=== PATIENT | male | born 1945 | race Caucasian/White ===

== ENCOUNTER 2017-09-19 22:29 | Observation (INO) ==
--- NOTE | 2017-09-19 23:43 | Emergency Department Note ---
Disposition Clinical Impression: Left leg pain, Unable to ambulate Disposition: Admitted As Inpatient Condition: Good Time of Disposition: 01:03 Extremity Problem HPI - General Chief complaint: ED Extremity Problem,Nontraumatic Stated complaint: Left knee pain Time Seen by Provider: 09/19/17 22:31 Source: patient Limitations: no limitations, altered mental status Nursing Notes Reviewed: Yes Vital Signs Reviewed: Yes - History of Present Illness HPI Narrative: 72-year-old male presents to the ER due to left knee pain. Reports it is issue this been going on for months. States he was supposed to have a procedure on his leg with a vascular surgeon that he cannot stay appointment. States he was drinking today and his leg gave out on him. States it happened several times. Reports pain in his left calf. Denies prior history of DVT. No numbness tingling or paresthesias. No other complaints. Pt Subjective Complaint: extremity pain Onset (ago): day(s) Consistency: intermittent Injury Location: left, lower extremity Pain Scale: 10 Improves with: nothing Worsens with: nothing Review of Systems: As Per HPI Past Medical History - Past Medical History Attestation: Yes The following information was validated with the patient. Source: patient Medical history: Reports: hyperlipidemia, hypertension Psychiatric history: Reports: anxiety, depression - Social History Smoking Status: Current every day smoker Smokeless Tobacco Status: No Alcohol use: Reports: heavy, recent Drug use: Reports: none Physical Exam - General Limitations: no limitations General appearance: appears intoxicated - Extremities Exam Extremities exam: Present: normal inspection, full ROM - Expanded Upper Extremity Exam Shoulder exam: Present: normal inspection, full ROM Arm exam: Present: normal inspection, full ROM Elbow exam: Present: normal inspection, full ROM Forearm/Wrist exam: Present: normal inspection, full ROM Hand exam: Present: normal inspection, full ROM - Expanded Lower Extremity Exam Hip/Pelvis exam: Present: normal inspection, full ROM Upper leg exam: Present: normal inspection, full ROM Knee exam: Present: normal inspection, full ROM Lower leg exam: Present: normal inspection, full ROM, other (Tenderness in the left calf. No discrepancy in leg swelling.) Ankle exam: Present: normal inspection, full ROM Foot/toe exam: Present: normal inspection, full ROM - Skin Skin exam: Present: warm, dry Course Course Narrative: Patient seen and examined. Neurovascularly intact. No indication for imaging. No evidence of DVT on exam. - Reevaluation(s) Reevaluation #1: Patient unable to ambulate here despite pain medication, walker. Plan for admission for social service consult with potential residential placement. Vital Signs Temperature 98.7 F 09/19/17 22:44 Pulse Rate 78 09/19/17 22:44 Respiratory Rate 16 09/19/17 22:44 Blood Pressure 134/81 09/19/17 22:44 O2 Sat by Pulse Oximetry 96 09/19/17 22:44 Temperature 98.7 F 09/19/17 22:44 Pulse Rate 78 09/19/17 22:44 Respiratory Rate 16 09/19/17 22:44 Blood Pressure 134/81 09/19/17 22:44 O2 Sat by Pulse Oximetry 96 09/19/17 22:44 Oxygen Delivery Oxygen Delivery Room Air Extremity Problem, Nontraumati - MDM Narrative Medical decision making narrative: 72-year-old male with left lower extremity pain. Likely claudication as he was supposed to see a vascular surgeon but canceled his surgery. Worsening pain unable to ambulate here despite medication and walker. Duplex imaging ordered for DVT evaluation however the patient is a poor candidate for anticoagulation at this time as he has frequent falls. Admitted to the hospitalist service for unable to ambulate and for further social service needs. - Lab Data Result diagrams: 09/20/17 02:30 09/20/17 02:30 Lab Results 09/20/17 09/20/17 09/20/17 Range/Units 02:30 02:30 02:30 WBC 13.9 H (4.3-11.1) K/mcL RBC 4.52 (4.19-5.50) M/mcL Hgb 15.2 (12.9-16.9) g/dL Hct 44.3 (37.5-50.1) % MCV 98.0 (83.0-100.0) fL MCH 33.6 H (28.0-33.3) pg MCHC 34.3 (31.6-35.5) g/dL RDW 13.2 (11.5-14.5) % Plt Count 211 (140-400) K/mcL MPV 10.1 (9.4-12.4) fL Immature Gran % 0.4 (0-4) % Seg Neutrophils % 67.5 % Lymphocytes % 26.0 % Monocytes % 4.5 % Eosinophils % 1.1 % Basophils % 0.5 % Neutrophils # 9.4 H (1.6-8.9) K/mcL Lymphocytes # 3.6 (0.6-4.6) K/mcL Monocytes # 0.6 (0.0-1.3) K/mcL Eosinophils # 0.2 (0.0-0.6) K/mcL Basophils # 0.1 (0.0-0.2) K/mcL Sodium 142 (136-145) mEq/L Potassium 3.7 (3.5-5.1) mEq/L Chloride 109 H (98-107) mEq/L Carbon Dioxide 23 (23-29) mEq/L BUN 16 (8-23) mg/dL Creatinine 0.71 (0.70-1.30) mg/dL Est GFR ( Amer) > 60 (> 60) Est GFR (Non-Af Amer) > 60 (> 60) BUN/Creatinine Ratio 23 (6-26) Glucose 154 H (70-105) mg/dL Calculated Osmolality 298 (280-300) Calcium 9.1 (8.6-10.3) mg/dL Total Bilirubin 0.3 (0.3-1.0) mg/dL AST 39 (13-39) Units/L ALT 44 (7-52) Units/L Alkaline Phosphatase 96 (34-104) Units/L Serum Total Protein 6.4 (6.4-8.9) g/dL Albumin 4.1 (3.5-5.7) g/dL Globulin 2.3 L (2.4-3.5) g/dL Albumin/Globulin Ratio 1.8 (1.1-2.2) Ethyl Alcohol 172 H (Less than 10) mg/dL Attestation Statement - Attestation Attestation: I examined this patient and my medical decision-making was reviewed with the Resident Physician. I agree with the documented findings, disposition and treatment plan as described except to the extent set forth below. Findings consistent with atraumatic knee pain. Good distal pulses. Full range of motion. The patient cannot bear weight. He has known vascular insufficiency of the lower extremity. Patient will be admitted for further management as he is intoxicated clinically and he cannot bear weight. I would be fearful setting him home intoxicated with ongoing pain symptoms as he was on the second floor.
[2017-09-20] MEDS ORDERED: *HR* OxyCODONE/APAP 10/325 TABLET PO ONE (02:12)
[2017-09-20 02:45] LABS: Basophils # 0.1 K/mcL (0.0-0.2); Basophils % 0.5 %; Eosinophils # 0.2 K/mcL (0.0-0.6); Eosinophils % 1.1 %; Hematocrit 44.3 % (37.5-50.1); Hemoglobin 15.2 g/dL (12.9-16.9); Immature Granulocytes % 0.4 % (0-4); Lymphocytes # 3.6 K/mcL (0.6-4.6); Mean Corpuscular HGB Conc 34.3 g/dL (31.6-35.5); Mean Corpuscular Hemoglobin 33.6 pg (28.0-33.3); Mean Platelet Volume 10.1 fL (9.4-12.4); Monocytes # 0.6 K/mcL (0.0-1.3); Monocytes % 4.5 %; Neutrophils # 9.4 K/mcL (1.6-8.9); Platelet Count 211 K/mcL (140-400); Red Blood Count 4.52 M/mcL (4.19-5.50); Red Cell Distribution Width 13.2 % (11.5-14.5); Segmented Neutrophils % 67.5 %
[2017-09-20 03:03] LABS: Alanine Aminotransferase 44 Units/L (7-52); Albumin 4.1 g/dL (3.5-5.7); Albumin/Globulin Ratio 1.8 (1.1-2.2); Alkaline Phosphatase 96 Units/L (34-104); Aspartate Amino Transferase 39 Units/L (13-39); BUN/Creatinine Ratio 23 (6-26); Bilirubin,Total 0.3 mg/dL (0.3-1.0); Blood Urea Nitrogen 16 mg/dL (8-23); Calcium 9.1 mg/dL (8.6-10.3); Carbon Dioxide 23 mEq/L (23-29); Chloride 109 mEq/L (98-107); Globulin 2.3 g/dL (2.4-3.5); Glucose 154 mg/dL (70-105); Osmolality,Calculated 298 (280-300); Potassium 3.7 mEq/L (3.5-5.1); Sodium 142 mEq/L (136-145); Total Protein 6.4 g/dL (6.4-8.9); eGFR For African Americans > 60 (> 60); eGFR For Non-African Americans > 60 (> 60)
[2017-09-20] MEDS ORDERED: Naloxone 0.4 MG/ML INJ IVP PRN (03:04)
[2017-09-20] MEDS ORDERED: *HR* LORazepam 2 MG/ML VIAL IVP PRN (03:08)
[2017-09-20] MEDS ORDERED: *HR* Promethazine 25 MG/ML VIAL IVP PRN (03:08)
--- NOTE | 2017-09-20 03:22 | Internal Med History&Physical ---
<Luís Licona - Last Filed: 09/20/17 03:15> Date of Encounter: 09/20/17 Time of Encounter: 03:15 Internal Medicine - H&P: HPI Chief complaint: left popliteal pain Admitted From: Home Plans for Post Hospital Care: Home History of present illness: Mr. Peters is a 72 year old male w/ pmh of EtOH abuse, COPD/emphysema 1-2 pack day current smoker presents with 2-4 month progressively worsening sharp pain behind his left knee. Pain is 10/10, worsened with movement, relieved at rest and his leg is straight, relieved with tylenol usage, with associated swelling. Pain waxes and wane throughout the day. [facility] with [facility]. Patient did not make appointment because he was scared to. Patient states that at the time he was diagnosed with sciatica and was prescribed gabapentin, which did not relieve pain. Patient states that he drinks alcohol when the pain gets bad, but does admit to have his first drink at 9 am yesterday morning and drinks 1/2 to a full 1/5th a day. Patient denies history of clotting, chest pain, shortness of breath, edema. Past Med Surg Social Fam HX - Past Medical History Medical history: hyperlipidemia, hypertension Psychiatric history: anxiety, depression - Social History Smoking Status: Current every day smoker Smokeless Tobacco Status: No Alcohol use: heavy, recent Drug use: none Internal Medicine - H&P: Meds 3 Allergy/AdvReac Type Severity Reaction Status Date / Time No Known Allergies Allergy Verified 09/20/17 02:26 All Systems PM: A 10-system review of systems was performed and is negative for pertinent findings except as documented above in the HPI. - Constitutional Constitutional: falls, no chills, no fever(s), no night sweats - EENT Eyes: no change in vision, no discharge, no pain, no photophobia Ears: no ear discharge, no ear pain, no tinnitus Nose, mouth and throat: no dysphagia, no nasal discharge, no neck pain, no sore throat - Cardiovascular Cardiovascular ROS IM: no chest pain, no diaphoresis, no dyspnea, no edema, no lightheadedness, no palpitations, no syncope - Respiratory Respiratory: no cough, no dyspnea, no wheezing, no excessive phlegm production - Gastrointestinal Gastrointestinal: no abdominal pain, no diarrhea, no hematemesis, no hematochezia, no melena, no nausea, no vomiting - Musculoskeletal Musculoskeletal ROS IM: no numbness, no tingling - Integumentary Integumentary IM: no rash, no unusual bruising - Neurological Neurological ROS: no confusion, no convulsions, no focal weakness, no numbness, no tingling, no tremor(s) - Hematologic/Lymphatic Hematologic/Lymphatic: no easy bruising - Constitutional Vitals: Temp Pulse Resp BP Pulse Ox 98.7 F 78 16 134/81 96 09/19/17 22:44 09/19/17 22:44 09/19/17 22:44 09/19/17 22:44 09/19/17 22:44 General appearance: Present: cooperative, A&O X 3, pleasant, no acute distress, answers questions appropriately - Head Head exam: Present: atraumatic, normocephalic - Eye Eye exam: Present: PERRL, conjuntiva pink Pupils: Present: PERRL Additional comments: Right eye 2 cm centrally located opacity - Neck Neck exam general surgery: Present: supple, trachea midline. Absent: lymphadenopathy - Respiratory Respiratory exam: Present: decreased breath sounds (on left side), prolonged expiratory phase. Absent: accessory muscle use, rales, rhonchi, wheezes - Cardiovascular Cardiovascular exam: Present: RRR. Absent: diastolic murmur, gallop, JVD, rubs , systolic murmur - GI/Abdominal GI/Abdominal exam: Present: distended, firm, hepatomegaly (liver is 10 cm below rib cage), no peritoneal signs. Absent: guarding, rebound, tenderness Additional comments: caput medusa - Extremities Exam Extremities exam: Present: normal capillary refill, warm, radial pulses palpable and symmetrical. Absent: calf tenderness, cyanotic, pedal edema, tenderness Additional comments: full ROM of lower extremities. equal reflexes in LE. dorsalis pedis, and posterior tibial pulses present and equal. tenderness to light palpation of left popliteal. swelling of left popliteal. homans sign negative. - Neurological Exam Neurological exam: Present: CN II-XII intact, oriented X3, no focal deficits. Absent: pronater drift, facial droop, speech deficit - Skin Skin exam: Present: dry, intact Internal Med - H&P Results - Labs CBC & Chem 7: 09/20/17 02:30 09/20/17 02:30 - Assessment and plan (1) Qureshi cyst Current Visit: Yes Status: Acute Assessment and plan: clinically patient most likely has Left Qureshi cyst vs claudication vs less likely DVT. Ordered U/S for evaluation, and consult to ortho. anti- inflammatory to decrease swelling. avoid acetaminophen due to history of alcohol abuse. - u/s left popliteal ordered - consult to ortho - ibuprofen once Qualifiers: Laterality: left Qualified Code(s): M71.22 - Synovial cyst of popliteal space [Qureshi], left knee (2) Alcohol abuse Current Visit: Yes Status: Acute Assessment and plan: Patient drink 1/5th a day. educated patient on benefits of cessation, currently not interested. 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 - ciwa protocol; ativan prn ordered - banana bag/vitamins ordered - AST/ALT ordered - consult to home health care social worker. - try to avoid opioids/benzos and hepatotoxic medications. (3) Emphysema lung Current Visit: Yes Status: Acute Assessment and plan: patient states he has a history of emphysema. [facility]. Qualifiers: Qualified Code(s): J43.9 - Emphysema, unspecified (4) Tobacco abuse Current Visit: Yes Status: Acute Assessment and plan: 1-2 packs a day. educated patient on cessation, not interested in quiting. - patch ordered (5) COPD (chronic obstructive pulmonary disease) Current Visit: Yes Status: Acute Assessment and plan: COPD not O2 dependent. currently stable. - SpO2 monitoring; provide respiratory support if needed. goal SpO2 88-92% Qualifiers: Qualified Code(s): J44.9 - Chronic obstructive pulmonary disease, unspecified (6) Left leg pain Current Visit: Yes Status: Acute Assessment and plan: see above (7) Eye abrasion Current Visit: Yes Status: Acute Assessment and plan: patient states that he's been told he had a detached retina. Right eye clinically appears closer to cataract or abrasion. Patient to have optometry appointment upon discharge. Qualifiers: Qualified Code(s): S05.8X2A - Other injuries of left eye and orbit, initial encounter (8) DVT prophylaxis Current Visit: Yes Status: Acute Assessment and plan: due to hepatomegaly, and etoh abuse, patient to be placed on EPCD. - Time Spent With Patient Total time spent is greater than 50% in coordination of care (as documented) at patient's floor/unit and/or counseling patient: <Vashti Scott - Last Filed: 09/20/17 04:37> Date of Encounter: 09/20/17 Time of Encounter: 04:00 Internal Medicine - H&P: HPI History of present illness: Mr. Peters is a 72 year old male All Systems PM: A 10-system review of systems was performed and is negative for pertinent findings except as documented above in the HPI. - Constitutional Vitals: Temp Pulse Resp BP Pulse Ox 98.7 F 78 16 134/81 96 09/19/17 22:44 09/19/17 22:44 09/19/17 22:44 09/19/17 22:44 09/19/17 22:44 Internal Med - H&P Results - Labs CBC & Chem 7: 09/20/17 02:30 09/20/17 02:30 - Attending Attestation I examined this patient and my medical decision-making was reviewed with the Resident Physician, Darion Licona. I agree with the documented findings, disposition and treatment plan as described with any changes as documented below. 72-year-old male patient with history of COPD, chronic alcohol abuse presented to the ER with complaints of left leg pain just behind his knee joint. He has had this pain for about a month but yesterday the pain got much worse suddenly. [facility] apparently [facility] after [facility] was done of his lower extremity. He does not recollect why. The pain in his leg is present both at rest and with ambulation. He denies any numbness or weakness in his leg. On examination, patient is awake and alert. He has had routine nail detachment in his right eye and vision loss as a result of it. Heart sounds are normal. Breath sounds are normal. Tenderness present in the left popliteal region with mild swelling. Good range of motion. Good pedal pulses. Skin is not cold to touch. No discoloration. No hair loss on the left leg. Alcohol level 172 Left leg pain: Etiology uncertain. We will get ultrasound of the popliteal region to look for any cyst. Could be related to bursitis also. Consult orthopedics for evaluation. If negative ultrasound, consider venous/arterial Dopplers. Alcohol abuse/intoxication: IV fluids. Multivitamins. Monitor for withdrawal. COPD: Place patient on bronchodilators as needed. - Assessment and plan (1) Left leg pain Current Visit: Yes Status: Acute (2) Qureshi cyst Current Visit: No Status: Suspected Qualifiers: Laterality: left Qualified Code(s): M71.22 - Synovial cyst of popliteal space [Qureshi], left knee (3) Alcohol abuse Current Visit: Yes Status: Acute (4) Emphysema lung Current Visit: Yes Status: Chronic Qualifiers: Qualified Code(s): J43.9 - Emphysema, unspecified (5) Tobacco abuse Current Visit: No Status: Acute (6) COPD (chronic obstructive pulmonary disease) Current Visit: Yes Status: Acute Qualifiers: COPD type: emphysema Emphysema type: unspecified Qualified Code(s): J43.9 - Emphysema, unspecified (7) Eye abrasion Current Visit: No Status: Chronic Qualifiers: Qualified Code(s): S05.8X2A - Other injuries of left eye and orbit, initial encounter (8) DVT prophylaxis Current Visit: Yes Status: Acute - Time Spent With Patient Total time spent is greater than 50% in coordination of care (as documented) at patient's floor/unit and/or counseling patient:
[2017-09-20] MEDS ORDERED: Haloperidol Lactate 5 MG/ML VIAL IVP ONE (03:30)
[2017-09-20] MEDS ORDERED: Ibuprofen 800 MG TABLET PO ONE (03:44)
[2017-09-20] MEDS ORDERED: Ipratropium/Albuterol Neb 3 ML IH PRN (04:40)
[2017-09-20] MEDS: Ringers Solution, Lactated 1,000 ML IVC SCH ×2 (05:27→19:24)
[2017-09-20] MEDS ORDERED: Ibuprofen 600 MG TABLET PO SCH (06:00)
[2017-09-20 07:01] LABS: Amylase 54 Units/L (29-103); Lipase 40 Units/L (11-82)
[2017-09-20 07:04] LABS: Alanine Aminotransferase 39 Units/L (7-52); Aspartate Amino Transferase 34 Units/L (13-39)
[2017-09-20 07:05] LABS: Prothrombin Time 11.2 Seconds (9.4-12.1)
[2017-09-20 07:07] LABS: Activated Partial Thrombo Time 34.9 Seconds (26.0-36.0)
--- NOTE | 2017-09-20 07:07 | Event Note ---
Date of Encounter: 09/20/17 Time of Encounter: 07:05 Patient was discussed with Ortho, they recommended to have patient follow up with [facility] if U/S does show jerome cyst. For other causes, will reconsult.
[2017-09-20] MEDS: Nicotine 21 MG PATCH.TD24 TD SCH (09:07)
[2017-09-20] MEDS ORDERED: *HR* OxyCODONE Immed Rel 5 MG TABLET PO ONE (10:11)
[2017-09-20] MEDS: Thiamine (B-1) 100 MG, Folic Acid 1 MG, MVI, adult with vitamin K 10 ML in 0.9 % Sodi... IVPB SCH (17:39)
[2017-09-20] MEDS: *HR* HYDROcodone/Acet 5/325 mg TABLET PO PRN (21:15)
[2017-09-21] MEDS: *HR* HYDROcodone/Acet 5/325 mg TABLET PO PRN ×5 (02:20→20:08)
[2017-09-21] MEDS: Nicotine 21 MG PATCH.TD24 TD SCH (09:36)
[2017-09-21] MEDS: Ringers Solution, Lactated 1,000 ML IVC SCH (09:37)
[2017-09-21 11:45] LABS: Basophils % 0.4 %; Eosinophils # 0.2 K/mcL (0.0-0.6); Eosinophils % 1.6 %; Hematocrit 41.8 % (37.5-50.1); Hemoglobin 14.5 g/dL (12.9-16.9); Immature Granulocytes % 0.4 % (0-4); Lymphocytes % 21.9 %; Mean Corpuscular HGB Conc 34.7 g/dL (31.6-35.5); Mean Corpuscular Hemoglobin 34.9 pg (28.0-33.3); Mean Corpuscular Volume 100.7 fL (83.0-100.0); Mean Platelet Volume 10.7 fL (9.4-12.4); Monocytes # 0.7 K/mcL (0.0-1.3); Monocytes % 7.5 %; Neutrophils # 6.2 K/mcL (1.6-8.9); Platelet Count 167 K/mcL (140-400); Red Blood Count 4.15 M/mcL (4.19-5.50); Segmented Neutrophils % 68.2 %
[2017-09-21 11:59] LABS: BUN/Creatinine Ratio 13 (6-26); Blood Urea Nitrogen 11 mg/dL (8-23); Calcium 9.1 mg/dL (8.6-10.3); Carbon Dioxide 28 mEq/L (23-29); Chloride 105 mEq/L (98-107); Glucose 127 mg/dL (70-105); Osmolality,Calculated 285 (280-300); Potassium 3.7 mEq/L (3.5-5.1); Sodium 137 mEq/L (136-145); eGFR For African Americans > 60 (> 60); eGFR For Non-African Americans > 60 (> 60)
--- NOTE | 2017-09-21 14:32 | Discharge Summary ---
- NOTES TO OUTPATIENT PROVIDER Notes to Outpatient Provider: Needs referral to orthopedic surgery to see on Friday or Friday for evaluation and treatment of painful Qureshi's Cyst. Dr So Date of Encounter: 09/21/17 Time of Encounter: 14:30 - Discharge Diagnosis (1) Left leg pain Priority: Primary Status: Acute Assessment and Plan: This is a symptomatic bakers cyst. Confirmed by ultrasound I discussed the case with orthopedic surgery, Dr. So and patient is to be referred to their office on follow-up on Friday for treatment. Patient unfortunately is unable to ambulate without assistance. We are awaiting physical therapy and social work arrangements for discharge, and transportation to orthopedic office, as well as appointment to be scheduled on Friday. (2) Qureshi cyst Priority: Primary Status: Suspected Assessment and Plan: See above Qualifiers: Laterality: left Qualified Code(s): M71.22 - Synovial cyst of popliteal space [Qureshi], left knee (3) Alcohol abuse Priority: Secondary Status: Acute Assessment and Plan: Patient drink 1/5th a day. educated patient on benefits of cessation, currently not interested. 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 09/21: Not showing any evidence of withdrawals. Patient not motivated to quit. He was counseled. (4) Emphysema lung Priority: Secondary Status: Chronic Assessment and Plan: patient states he has a history of emphysema. [facility] 09/21: Stable Smoking cessation encouraged Qualifiers: Qualified Code(s): J43.9 - Emphysema, unspecified (5) Tobacco abuse Priority: Secondary Status: Acute Assessment and Plan: 1-2 packs a day. educated patient on cessation, not interested in quiting. - patch ordered (6) Eye abrasion Priority: Secondary Status: Chronic Assessment and Plan: patient states that he's been told he had a detached retina. Right eye clinically appears closer to cataract or abrasion. Patient to have optometry appointment upon discharge. Qualifiers: Encounter type: subsequent encounter Laterality: unspecified laterality Qualified Code(s): S05.8X9D - Other injuries of unspecified eye and orbit, subsequent encounter (7) DVT prophylaxis Priority: Secondary Status: Acute Hospital course: Mr. Peters is a 72 year old male w/ pmh of EtOH abuse, COPD/emphysema 1-2 pack day current smoker presents with 2-4 month progressively worsening sharp pain behind his left knee. Pain is 10/10, worsened with movement, relieved at rest and his leg is straight, relieved with tylenol usage, with associated swelling. Pain waxes and wane throughout the day. Patient [facility] appointment with [facility]. Patient did not make appointment because he was scared to. Patient states that at the time he was diagnosed with sciatica and was prescribed gabapentin, which did not relieve pain. Patient states that he drinks alcohol when the pain gets bad, but does admit to have his first drink at 9 am yesterday morning and drinks 1/2 to a full 1/5th a day. Patient denies history of clotting, chest pain, shortness of breath, edema. 09/21: Hospital Course: Patient's remained stable throughout his hospital stay. He still has significant pain in his left knee and cannot walk without assistance. Patient will need appointment at orthopedic surgery office to be arranged as soon as possible, hopefully on Friday, September 22 for treatment of his Qureshi's cyst with either injection or drainage or both. Did discuss the case with . Patient otherwise is stable for discharge when arrangements are made. Pt has no desire to quit drinking. He did not have any withdrawal symptoms. He has no desire to quit smoking. Anticipate discharge on September 22 with assistance of social work, physical therapy. - Time Spent with Patient Total time spent providing and/or coordinating discharge services: - Discharge Medications Home Medications: Albuterol Sulfate [Albuterol Inhaler] 2 puff IH QID PRN 09/20/17 [History] Calcium Carb, Citrate/Vit D3 [Calcium + D3 ER Tablet] 1 tab PO DAILY 09/20/17 [ History] Carboxymethylcellulose Sodium [Refresh Tears] 1 drop OP TID PRN 09/20/17 [ History] Chlorhexidine Gluconate [Peridex] 30 ml MM BID 09/20/17 [History] Cholecalciferol (D-3) [Vitamin D] 2,000 unit PO DAILY 09/20/17 [History] Gabapentin [Neurontin] 800 mg PO HS 09/20/17 [History] Hydrocortisone 1% OINT [Cortaid] 1 appl TP BID 09/20/17 [History] Latanoprost [Xalatan] 1 drop OP HS 09/20/17 [History] Lisinopril [Zestril] 10 mg PO DAILY 09/20/17 [History] Sildenafil Citrate [Viagra] 100 mg PO AD PRN 09/20/17 [History] Simvastatin [Zocor] 10 mg PO HS 09/20/17 [History] Vit A/Vit C/Vit E/Zinc/Copper [Preservision Areds Tablet] 1 tab PO BID 09/20/17 [History] Allergies/Adverse Reactions: 3 Allergy/AdvReac Type Severity Reaction Status Date / Time No Known Allergies Allergy Verified 09/20/17 13:10 Date of admission: 09/20/17 02:36 Primary care physician: [facility] Consults: 09/20/17 03:08 Consult to Medical Collections Representative [CONS] Routine Reason for SW Consult: ETOH abuse 09/20/17 17:44 Consult to Orthopedic Surgery [CONS] Routine Consulting Provider: [facility] Reason for Consult: intractable pain, Bakers Cyst Time Notified: 17:44 Call Completed: Yes 09/20/17 22:20 Consult to Physical Therapy [CONS] Routine Comment: Evaluate, develop and implement POC Reason for Consult: difficulty walking, discharge planning. Does patient have active BEDREST order?: No Is patient medically & hemodynamically stable?: Yes Patient assessed for mobility or mobilized this visit?: Yes Discharging clinician: Darion Santana Anticipated date of discharge: 09/22/17 - Constitutional Vitals: Temp Pulse Resp BP Pulse Ox 97.8 F 73 17 165/93 95 09/21/17 11:47 09/21/17 11:47 09/21/17 11:47 09/21/17 11:47 09/21/17 11:47 General appearance: Present: cooperative, A&O X 3, pleasant, no acute distress, answers questions appropriately Exam: Dissheveled appearance - Head Head exam: Present: atraumatic, normocephalic - Eye Eye exam: Present: PERRL, conjuntiva pink, sclera anicteric Pupils: Present: PERRL - Neck Neck exam general surgery: Present: supple, trachea midline. Absent: lymphadenopathy - Respiratory Respiratory exam: Present: CTAB. Absent: accessory muscle use, rales, rhonchi, wheezes - Cardiovascular Cardiovascular exam: Present: RRR, +S1, +S2. Absent: diastolic murmur, gallop, rubs, systolic murmur Additional comments: Patient has a 10 inch linear bruise, approximately 1/2 inch in diameter going across left anterior lateral rib cage (states this was from recent fall while at home) - GI/Abdominal GI/Abdominal exam: Present: normal bowel sounds, soft, no peritoneal signs. Absent: distended, tenderness - Extremities Exam Extremities exam: Present: warm, radial pulses palpable and symmetrical. Absent : calf tenderness, cyanotic, pedal edema Additional comments: Both feet have findings of peripheral vascular disease with duskiness and loss of hair. This is not a new finding per the patient. Patient does have follow- up with vascular surgeon planned as outpatient.. Pt has tenderness in left popliteal fossa. - Neurological Exam Neurological exam: Present: CN II-XII intact, oriented X3, no focal deficits. Absent: pronater drift, facial droop, speech deficit - Skin Skin exam: Present: dry, intact - Patient Status Disposition: Home Health Service Condition: Good Functional capacity at discharge: uses cane/walker Overall status at discharge: patient is progressing back to baseline - Discharge Instructions Instructions: Abuse of Alcohol (DC), How to Stop Smoking (GEN) [facility]: [facility]Primary Care Provider[facility] - Tate So MD [Partnered Physician] - (As discussed on phone over weekend. Patient to see him in office hopefully Friday or Friday for evaluation and hopefully treatment symptomatic Qureshi's cyst)
[2017-09-21] MEDS: Thiamine (B-1) 100 MG, Folic Acid 1 MG, MVI, adult with vitamin K 10 ML in 0.9 % Sodi... IVPB SCH (17:10)
[2017-09-22] MEDS: *HR* HYDROcodone/Acet 5/325 mg TABLET PO PRN ×2 (00:15→05:41)
[2017-09-22] MEDS: Ringers Solution, Lactated 1,000 ML IVC SCH (05:42)
[2017-09-22] MEDS: Nicotine 21 MG PATCH.TD24 TD SCH (08:56)
--- NOTE | 2017-09-22 10:18 | Internal Med Progress Note ---
Date of Encounter: 09/22/17 Time of Encounter: 10:16 - Assessment and plan (1) Left leg pain Current Visit: Yes Status: Acute Assessment and plan: Qureshi's cyst on the left side obtained by ultrasound. Patient was spoken to by the orthopedic surgery as an outpatient and we are trying to arrange an appointment for him. In the meantime will last up to put in an Louie wrap and use when necessary Tylenol and/or Motrin and limited quantities due to his liver failure and chronic alcohol history. Hopefully he can be discharged today with follow-up on orthopedic surgery as an outpatient. (2) Qureshi cyst Current Visit: No Status: Suspected Assessment and plan: See above Qualifiers: Laterality: left Qualified Code(s): M71.22 - Synovial cyst of popliteal space [Qureshi], left knee (3) Alcohol abuse Current Visit: Yes Status: Acute Assessment and plan: Patient drink 1/5th a day. educated patient on benefits of cessation, currently not interested. 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 09/21: Not showing any evidence of withdrawals. Patient not motivated to quit. He was counseled. 09/22-patient does not have any evidence of withdrawal. Patient was again given stronger guidance and counseling regarding alcohol cessation. He does not appear to be motivated to quit at this point did he states that he takes alcohol to ease his pain. I have asked him to follow with primary care physician for the same (4) Emphysema lung Current Visit: Yes Status: Chronic Assessment and plan: patient states he has a history of emphysema. He follows at the [facility]. 09/21: Stable Smoking cessation encouraged Qualifiers: Qualified Code(s): J43.9 - Emphysema, unspecified (5) Tobacco abuse Current Visit: No Status: Acute Assessment and plan: 1-2 packs a day. educated patient on cessation, not interested in quiting. - patch ordered (6) Eye abrasion Current Visit: No Status: Chronic Assessment and plan: patient states that he's been told he had a detached retina. Right eye clinically appears closer to cataract or abrasion. Patient to have optometry appointment upon discharge. Qualifiers: Encounter type: subsequent encounter Laterality: unspecified laterality Qualified Code(s): S05.8X9D - Other injuries of unspecified eye and orbit, subsequent encounter (7) DVT prophylaxis Current Visit: Yes Status: Acute Assessment and plan: due to hepatomegaly, and etoh abuse, patient to be placed on EPCD. - Time Spent With Patient Total time spent is greater than 50% in coordination of care (as documented) at patient's floor/unit and/or counseling patient: Greater than 35 minutes - Subjective Interval history: Patient denies any shortness of breath or chest pain at this point. He does have the complaint of the left leg pain which is a Qureshi cyst. He does not have any withdrawal symptoms at this point and wishes to go home. We are trying to arrange an orthopedic appointment for him prior to his discharge. - Constitutional Vitals: Temp Pulse Resp BP Pulse Ox 98 F 78 16 156/95 95 09/22/17 06:41 09/22/17 06:41 09/22/17 06:41 09/22/17 06:41 09/22/17 06:41 General appearance: Present: cooperative, A&O X 3, pleasant, no acute distress, answers questions appropriately Exam: GENERAL: Alert, moderate distress, cooperative EYES: PERRLA, EOMI EARS: External ears normal, canals clear OROPHARYNX: Lips, mucosa, and tongue normal. Teeth and gums normal. Oropharynx normal. NECK: No jugulovenous distention, No carotid bruits, Carotid pulse normal contour, Supple LUNGS: Lungs clear to auscultation, Good diaphragmatic excursion CARDIAC: Normal S1 and S2; no rubs, murmurs, or gallops ABDOMEN: Abdomen bruise on the left upper quadrant from a fall. EXTREMITIES: Qureshi's cyst felt on the left popliteal fossa. Tender to palpation. NEURO: Gait is antalgic on the left side PULSES: 2+ radial, 2+ carotid Rest of the exam is non contributory - Head Head exam: Present: atraumatic, normocephalic Internal Medicine: Result - Labs CBC & Chem 7: 09/21/17 11:13 09/21/17 11:13 Labs: Short CBC 09/21/17 Range/Units 11:13 WBC 9.1 (4.3-11.1) K/mcL Hgb 14.5 (12.9-16.9) g/dL Hct 41.8 (37.5-50.1) % Plt Count 167 (140-400) K/mcL Neutrophils # 6.2 (1.6-8.9) K/mcL BMP 09/21/17 11:13 Sodium 137 Potassium 3.7 Chloride 105 Carbon Dioxide 28 BUN 11 Creatinine 0.82 Glucose 127 H Calcium 9.1 - ABG Interpretation ABG results: PT/INR, D-dimer PT 11.2 Seconds (9.4-12.1) 09/20/17 06:28 Consult Discharge Plan - Plan Instructions: How to Stop Smoking (GEN), Abuse of Alcohol (DC) Referrals: Tate So MD [Partnered Physician] - (As discussed on phone over weekend. Patient to see him in office hopefully Friday or Friday for evaluation and hopefully treatment symptomatic Qureshi's cyst) [facility]Primary Care Provider[facility] - Prescriptions: Metoprolol [Lopressor] 25 mg PO BID 30 Days #60 tablet
[2017-09-22 11:28] VITALS: BP 154/87
[2017-09-23] MEDS ORDERED: Folic Acid 1 MG TABLET PO SCH (09:00)
[2017-09-23] MEDS ORDERED: Thiamine (B-1) 100 MG TABLET PO SCH (09:00)
[2017-09-23] MEDS ORDERED: Vitamin B Complex/Vit C/Vit E 1 EACH TABLET PO SCH (09:00)
== END 2017-09-22 10:59 | disposition home health service (06) ==
LOC: EMEROO 22:29 → 3NENU 22:29 → SUATTDRO 09-20 02:36 → 3NENU 09-20 03:06
PROVIDERS: ADMIT Internal Medicine; ATTEND Internal Medicine